=== PATIENT | male | born 1980 | race Hispanic/Latino ===

== ENCOUNTER → 2019-03-02 | Day surgery (SDC) | payer MEDICARE ==
[~2019-03-02] MED LIST: ALLOPURINOL300 MG PO; CEFTRIAXONE SOD 1 GM/NS 50 ML 50 ML IV ONE; COMBIVENT RESPIM4 GM IH; DESFLURANE 240 ML BTL INH ONE; DEXAMETHASONE SOD PHOS INJ 4 MG/ML VIAL ONE; DEXILANT60 MG PO; FENOFIBRATE145 MG PO; FENTANYL CITRATE/PF 100MCG/2 ML INJ ONE; IOPAMIDOL 610MG/1ML 300 MG/ML VIAL IV ONE; LEVOTHYROXINE88 MCG PO; LIDOCAINE HCL 2% LOCAL INJ 5 ML SDV VIAL INJ ONE; LOSARTAN POTASS25 MG PO; MIDAZOLAM HCL 2 MG/2 ML VIAL ONE; ONDANSETRON HCL INJ 2MG/ML 2ML 2 MG/ML VIAL ONE; PROPOFOL IV EMULSION 10 MG/ML 20 ML VIAL ONE; RANITIDINE HCL300 M1 PO; TOPIRAMATE25 MG PO; VITAMIN D250000 UNIT PO
[2019-03-02 10:15] VITALS: BP 108/88
--- NOTE | 2019-03-02 14:57 | Diagnostic Imaging Report ---
Retrograde pyelogram. History: Hematuria. Comparison: None available. Discussion: Examination was performed by surgeon in the OR. Contrast was injected in a retrograde fashion into the ureters bilaterally. Calyces fill bilaterally. There is no filling defect or irregularity. Fluoro time: 19 seconds. Dose: 6.3 mGy (NAYA) Incidental note is made of increased sclerosis of the L5 vertebral body posterior elements. IMPRESSION: Normal retrograde pyelogram. Recommend lumbar spine series for further evaluation of L5 finding. Signed by: Roge Capone on 03/02/2019 2:54 PM
--- NOTE | 2019-03-03 22:29 | Operative Report ---
DATE OF PROCEDURE: 03/02/2019 SURGEON: Nick Mesa MD PREOPERATIVE DIAGNOSIS: Hematuria. POSTOPERATIVE DIAGNOSIS: Hematuria with spinal anomalies. PROCEDURES: 1. Cystourethroscopy with left ureteral catheterization and left retrograde pyelogram. 2. Cystourethroscopy with right ureteral catheterization and right retrograde pyelogram. 3. Supervision of fluoroscopy. 4. Interpretation of retrograde pyelography. ANESTHESIA: General. ESTIMATED BLOOD LOSS: Minimal. COMPLICATIONS: None. INDICATIONS FOR PROCEDURE: Mr. Valdez is a 38-year-old male patient with hematuria. He and I had a long discussion about alternatives, risks, and benefits including doing nothing, cystoscopy, IVP, retrograde pyelograms, and renal ultrasound. He voiced understanding of the options, alternatives, the risks, and benefits and elected to proceed. PROCEDURE IN DETAIL: After informed consent was obtained, the patient was taken to the operative suite, placed supine on the operating table, underwent general anesthesia by Anesthesia Service. He was placed in the dorsal lithotomy position, sterilely prepped and draped in standard fashion for cystoscopy. A 21-[place] cystoscope was inserted per urethra and normal urethra was noted. There was an elevated bladder neck, mild bilateral prostatic hypertrophy. Panendoscopy of the bladder revealed moderate trabeculation. No tumor, no stones, both ureteral orifices in normal anatomic location and position. Bilateral retrograde pyelogram was performed, which were normal. The bladder was then drained urinary casper. Of note, there was distal lumbar sacral spinal junctions and misalignment and a filling defect defer to Radiology for bony abnormalities. The patient was awakened from anesthesia and transferred to recovery room in excellent condition with no untoward effects noted. Supervision of fluoroscopy and interpretation ventriculography: I was present for the entire procedure and supervised the use of fluoroscopy. A 21-[place]vian cystoscope was used to insert bilateral ureteral catheterizations. Retrograde pyelogram was performed revealing delicate ureters, delicate pelvocaliceal systems, no evidence of filling defects. No evidence of hydronephrosis. IMPRESSION: Normal retrograde pyelograms. Nick Mesa MD ES/MODL /[id number]
== END | disposition home or self-care (01) ==
LOC: OR 06:01
PROVIDERS: ATTEND Urology
DX: R31.29 Other microscopic hematuria (principal); Q76.49 Other congenital malformations of spine, not associated with scoliosis; N40.0 Benign prostatic hyperplasia without lower urinary tract symptoms; N28.1 Cyst of kidney, acquired; J45.909 Unspecified asthma, uncomplicated; K21.9 Gastro-esophageal reflux disease without esophagitis; I10 Essential (primary) hypertension
CPT/HCPCS: 52005; 74420; 93005; C1758; J0696; J2250; J3010; Q9967; J1100; J2001; J2405